=== PATIENT | female | born 1975 | race Two or more races ===

== ENCOUNTER → 2024-08-04 | Outpatient (CLI) | payer MEDICAID, SELFPAY ==
--- NOTE | 2024-08-04 16:30 | XR_ITS ---
Examination: Ultrasound soft tissue lower back TECHNIQUE: Grayscale sonographic images soft tissue lower back INDICATIONS: Left lower back palpable lump noticed beginning one year ago. FINDINGS: Soft tissue mass at the area concern 2.0 x 1.2 x 4.5 cm slightly hyperechoic most consistent with lipoma IMPRESSION: Soft tissue mass consistent with lipoma at the area concern Recommend 6 month follow-up ultrasound soft tissue
== END | disposition home or self-care (01) ==
LOC: CDIM 15:54
PROVIDERS: PCP Physician Assistant; Referring Provider Physician Assistant; Visit Provider Physician Assistant
DX: R22.2 Localized swelling, mass and lump, trunk (principal)
CPT/HCPCS: 76604

== ENCOUNTER → 2025-01-01 | Outpatient (CLI) | payer MEDICAID, SELFPAY ==
--- NOTE | 2025-01-01 09:30 | XR_ITS ---
Examination: Screening digital mammography, bilateral Computer aided detection 3-D breast Tomosynthesis, bilateral Date and time of exam: January 01, 2025, 0948 hours Compared to mammograms dating to January 09, 2023 Indication: Screening Technique: Nonmagnified MLO, CC views of the breasts to been obtained, reconstructed from 3-D Tomosynthesis images. R2 computer aided detection program utilized for evaluation of suspicious masses and/or abnormal calcifications. 3-D Tomosynthesis images obtained. Findings: Scattered areas of fibroglandular density Stable appearing architectural distortion retroareolar region left breast Benign calcifications Impression: BI-RADS Category 0: Incomplete: Need additional imaging evaluation Stable appearing architectural distortion retroareolar region left breast, recommend repeat left breast sonography
== END | disposition home or self-care (01) ==
LOC: CDIM 09:40
PROVIDERS: PCP Physician Assistant; Referring Provider Physician Assistant; Visit Provider Physician Assistant
DX: Z12.31 Encounter for screening mammogram for malignant neoplasm of breast (principal); R92.8 Other abnormal and inconclusive findings on diagnostic imaging of breast
CPT/HCPCS: 77063; 77067

== ENCOUNTER → 2025-06-09 | Outpatient (CLI) | payer MEDICAID, SELFPAY ==
--- NOTE | 2025-06-09 09:50 | XR_ITS ---
Examination: Right hip AP, lateral, AP pelvis 3 views Technique: Hip AP lateral, AP pelvis, 3 views Exam date and time: June 09, 2025, 1001 hours INDICATION: Right hip pain 5 years. FINDINGS: No right hip fracture or hip dislocation Mild bilateral hip osteoarthritis Bones of the pelvis intact IMPRESSION: Mild bilateral hip osteoarthritis.
== END | disposition home or self-care (01) ==
PROVIDERS: PCP Physician Assistant; Referring Provider Physician Assistant; Visit Provider Physician Assistant
DX: M16.0 Bilateral primary osteoarthritis of hip (principal)
CPT/HCPCS: 73502